=== PATIENT | female | born 1935 | race Caucasian/White ===

== ENCOUNTER 2017-01-28 18:40 | Emergency (ER) | payer MEDICARE, BC ==
--- NOTE | 2017-01-28 19:34 | EDM.PDOC ---
ED HPI GENERAL MEDICAL PROBLEM - General Chief Complaint: General Stated Complaint: fell - Facial abrasion Time Seen by Provider: 01/28/17 19:05 Source of Information: Reports: Patient History Limitations: Reports: No Limitations - History of Present Illness INITIAL COMMENTS - FREE TEXT/NARRATIVE: According to patient she got off her car and was walking towards [employer] for steak dinner, as she was getting into the restaurant, she tripped and fell forward and brushed her face over the ground. No hard hit on the face, she claims that she has pain in the upper lip. She does have bruising of the upper lip. Her last tetanus was in november of 2016. No LOC, no tinnitus, blurry vision. No bleeding form nose or ears or mouth. She feels like her upper front teeth might be loosened. Onset: Today Onset Date: 01/28/17 Onset Time: 18:45 Severity: Mild Improves with: Reports: None Worsens with: Reports: None Associated Symptoms: Denies: Confusion, Chest Pain, Cough, Fever/Chills, Nausea/ Vomiting, Rash, Seizure, Shortness of Breath, Syncope, Weakness right side of her upper lip Pain Score (Numeric/FACES): 4 - Related Data Allergies Allergy/AdvReac Type Severity Reaction Status Date / Time amoxicillin Allergy Nausea Verified 01/28/17 19:10 risedronate sodium Allergy Other Verified 01/28/17 19:11 [From Actonel] rofecoxib [From Vioxx] Allergy Other Verified 01/28/17 19:10 Home Meds: Home Meds Atenolol [Atenolol] 50 mg PO DAILY 01/28/17 [History] Calcium Carbonate/Vitamin D3 [Calcium 500 + Vit D 400] 1 tab PO DAILY 01/28/17 [ History] Folic Acid [Folic Acid] 1 tab PO DAILY 01/28/17 [History] Levothyroxine [Levothyroxine] 112 mcg PO DAILY 01/28/17 [History] Melatonin [Melatin] 5 mg PO DAILY 01/28/17 [History] Methotrexate Sodium [Methotrexate] 5 tab PO WEEKLY 01/28/17 [History] Spironolactone [Aldactone] 1 tab PO DAILY 01/28/17 [History] Vit A/C/E AC/Znox/Cupric Oxide [Eye Vitamin-Minerals Tablet] 1 tab PO DAILY [History] ED ROS GENERAL - Review of Systems Review Of Systems: See Below Constitutional: Denies: Fever, Chills, Malaise HEENT: Reports: Dental Pain. Denies: Rhinitis, Sinus Problem, Throat Pain, Throat Swelling Respiratory: Denies: Shortness of Breath, Cough, Sputum Cardiovascular: Denies: Chest Pain, Syncope GI/Abdominal: Denies: Abdominal Pain, Nausea, Vomiting : Denies: Dysuria, Flank Pain Musculoskeletal: Denies: Shoulder Pain, Arm Pain, Joint Pain, Joint Swelling Skin: Reports: Bruising. Denies: Pruritis, Rash ED EXAM, GENERAL - Physical Exam Exam: See Below Exam Limited By: No Limitations General Appearance: Alert, WD/WN, No Apparent Distress Eye Exam: Bilateral Eye: EOMI, PERRL Ears: Normal External Exam, Normal Canal, Hearing Grossly Normal, Normal TMs Ear Exam: Bilateral Ear: Auricle Normal, Canal Normal, TM normal Nose: Normal Inspection, Normal Mucosa, No Blood Throat/Mouth: Normal Inspection, Normal Gums, Normal Oropharynx, Other (there are few less than 2-3 mm dee dee abrasions over the uper lip. No laceration on the mucosal aspect of the lip or swelling. On examination of the mouth, there is mild loosening of the right upper cannine tooth, but is minimal tender. Also she is tender over the maxilla just dital to the nasal septum.) Head: Other (there is superficial abrasion over the right zygoma, hemostatic. very minimal tenderness.). No: Facial Swelling, Facial Tenderness, Sinus Tenderness Course - Vital Signs Text/Narrative:: Pt's clinical exam appears normal other than loosened right upper canine, but it is not very loose or out of socket. Pt is minimally tender. She does have superficial abrasion, clean and simple antibiotic ointment applied on the abrasions. As she is tender over the maxillla just distal to the nasal septum, I did get CT of the faciomaxilla, which is negative for fracture. I have reassured patient that she does not have facial fracture, but does have loosened tooth as describe above. Advised soft diet. Rinse the mouth with lysterine gargles after every meal and bedtime. Tylenol 500mg 4times daily as needed for pain. Cold compresses to the face to prevent swelling. Simple antibiotic ointment application twice daily on the superficial abrasions of the face. Followup with Dentist in [facility] on Tuesday morning for recheck on the tooth. Last Recorded V/S: Last Vital Signs Temp 98.6 F 01/28/17 19:28 Pulse 83 01/28/17 19:28 Resp 16 01/28/17 19:28 BP 149/67 H 01/28/17 19:28 Pulse Ox 98 01/28/17 19:28 - Orders/Labs/Meds Orders: Active Orders 24 hr Category Date Time Status Max Facial Sinus wo Cont [CT] Stat Exams 01/28/17 19:27 Taken Departure - Departure Time of Disposition: 20:30 Disposition: Home, Self-Care 01 Condition: Fair Clinical Impression: Abrasion of face, Loose tooth due to trauma - Discharge Information Instructions: Fractured-Jaw Meal Plan, Cryotherapy Referrals: PCP,None [Primary Care Provider] - Forms: ED Department Discharge Additional Instructions: Use cold ice packs at home and tylenol for pain. Dentist in [place]: Dr. Jalloh [phone] (right on [facility]) [place]: Dr. Oliva [phone] [facility] [phone] - Problem List & Annotations (1) Abrasion of face SNOMED Code(s): 594879889 Code(s): S00.81XA - ABRASION OF OTHER PART OF HEAD, INITIAL ENCOUNTER Status: Acute Current Visit: Yes (2) Loose tooth due to trauma SNOMED Code(s): 786935139 Code(s): K08.89 - OTHER SPECIFIED DISORDERS OF TEETH AND SUPPORTING STRUCTURES Status: Acute Current Visit: Yes - Problem List Review Problem List Initiated/Reviewed/Updated: Yes - My Orders Last 24 Hours: My Active Orders 01/28/17 19:27 Max Facial Sinus wo Cont [CT] Stat - Assessment/Plan Last 24 Hours: My Active Orders 01/28/17 19:27 Max Facial Sinus wo Cont [CT] Stat Assessment:: Facial abrasions with loose tooth S/P trauma Plan: Pt's clinical exam appears normal other than loosened right upper canine, but it is not very loose or out of socket. Pt is minimally tender. She does have superficial abrasion, clean and simple antibiotic ointment applied on the abrasions. As she is tender over the maxillla just distal to the nasal septum, I did get CT of the faciomaxilla, which is negative for fracture. I have reassured patient that she does not have facial fracture, but does have loosened tooth as describe above. Advised soft diet. Rinse the mouth with lysterine gargles after every meal and bedtime. Tylenol 500mg 4times daily as needed for pain. Cold compresses to the face to prevent swelling. Simple antibiotic ointment application twice daily on the superficial abrasions of the face. Followup with Dentist [place] on Tuesday morning for recheck on the tooth.
--- NOTE | 2017-01-31 07:21 | CT ---
DATE OF SERVICE: 01/28/17 CLINICAL DATA: Facial injury FACIAL CT: Multislice axial acquisition was performed. Axial images and sagittal and coronal reformations are reviewed. There is significant beam-hardening and streak artifact produced by the patient' s metallic dental work obscuring adjacent structures. There is mucosal thickening in the ethmoid and maxillary sinuses consistent with chronic sinusitis. The remaining sinuses are clear. No air-fluid levels. No fractures. No lytic or blastic bone lesions. The globes and orbital contents appear unremarkable. [id number] [facility]
== END 2017-01-28 20:16 | disposition home or self-care (01) ==
LOC: LB.ED 18:40
DX: S00.81XA Abrasion of other part of head, initial encounter (principal); K08.89 Other specified disorders of teeth and supporting structures; Z88.1 Allergy status to other antibiotic agents; Z88.8 Allergy status to other drugs, medicaments and biological substances; Z79.899 Other long term (current) drug therapy; W01.0XXA Fall on same level from slipping, tripping and stumbling without subsequent striking against object, initial encounter; Y92.511 Restaurant or cafe as the place of occurrence of the external cause
CPT/HCPCS: 70486; 99283; 99283-25